=== PATIENT | male | born 1955 | race Caucasian/White ===

== ENCOUNTER 2023-02-03 11:03 | Emergency (ER) | payer MEDICARE, OTHER, SELFPAY ==
[2023-02-03] VITALS (8 sets, daily range): BP systolic 152–212; BP diastolic 75–92; PULSE 47–55; RESP 16–19; TEMP 36.7; O2SAT 96–99; BMI 26.7
--- NOTE | 2023-02-03 11:17 | DI.US.S_ITS ---
PROCEDURE: US ABDOMEN LIMITED INDICATIONS: RUQ PAIN TECHNIQUE: Real-time scanning was performed of the abdominal and retroperitoneal organs, with image documentation. COMPARISON: None. FINDINGS: Liver: Hepatic parenchyma shows diffuse increased echogenicity consistent with fatty infiltration. Gallbladder: Cholelithiasis and biliary sludge noted with mild gallbladder wall thickening at 3.3 mm. No pericholecystic fluid or Briceño sign Common Bile Duct: 5.2 mm. Pancreas: Unremarkable as visualized IMPRESSION: 1. Cholelithiasis and mild gallbladder wall thickening without pericholecystic fluid or Briceño sign. 2. Hepatic fatty infiltration Approved by: Kvng Oseguera M.D. on 02/03/2023 at 12:29
--- NOTE | 2023-02-03 11:18 | ED.ABDPAIN ---
HPI - Abdominal Pain General Chief Complaint: Abdominal Pain Stated Complaint: abd pain Time Seen by Provider: 02/03/23 11:10 History of Present Illness HPI narrative: 67-year-old male nonsmoker with history of coronary artery disease, prior 4 vessel CABG presents with multiple family members in the chief complaint of a relatively sudden onset right upper quadrant pain that woke him from sleep at about 230 this morning. He states that it is moderate in intensity and persistent. He denies any obvious provocation, palliation or radiation. He denies associated symptoms such as dizziness, weakness or lightheadedness. He denies any chest pain or shortness of breath. He is had no nausea, vomiting or change in bowel habits. He denies dysuria, frequency or urgency. He had initially called the nursing hotline who instructed him to present to an urgent care or emergency department and was sent here by our walk-in clinic. Related Data Previous Rx's Medication Instructions Recorded hydrocodone 5 mg-acetaminophen 325 1 tab PO Q4-6H PRN pain #10 tabs 02/03/23 mg tablet ondansetron 4 mg disintegrating 4 mg PO TID-QID PRN nausea and 02/03/23 tablet vomiting #10 tabs pantoprazole 40 mg tablet,delayed 40 mg PO DAILY #30 tabs 02/03/23 release (Protonix) Allergies Allergy/AdvReac Type Severity Reaction Status Date / Time No Known Drug Allergies Allergy Unverified 02/03/23 11:04 Review of Systems Review of Systems Narrative: GENERAL: Denies chills, fatigue, malaise, fever, sweats. HEENT: Denies sinus pain, ear pain, sore throat, difficulty swallowing, dizziness. RESPIRATORY: Denies dyspnea, cough, wheezing, hemoptysis, sputum. CARDIOVASCULAR: Denies chest pain, palpitations, orthopnea, edema, GASTROINTESTINAL: See HPI : See HPI MUSCULOSKELETAL: denies weakness, joint pain, or bony pain SKIN: Denies rash, skin lesions, or other NEUROLOGIC: Denies weakness, headache, numbness, change in speech, confusion, seizures, incoordination. PSYCHIATRIC: No concerning psychosocial issues. 12 point review of systems is negative except for those stated above Exam Narrative Exam Narrative: GENERAL: [67] year old patient appears stated age. Well-developed patient, in mild distress. HEAD: Atraumatic. Normocephalic. EYES: Pupils equal round and reactive. Extraocular motions intact. No scleral icterus. No injection or drainage. ENT: Nose without bleeding, purulent drainage. Throat without erythema, tonsillar hypertrophy or exudate. Airway patent. NECK: Trachea midline. Non tender CARDIOVASCULAR: Regular rate and rhythm without murmurs, gallops, or rubs. RESPIRATORY: Clear to auscultation. Breath sounds equal bilaterally. No wheezes, rales, or rhonchi. GASTROINTESTINAL: Abdomen soft, non-tender, nondistended. EXTREMITIES: No edema or joint tenderness. BACK: Nontender without deformity or crepitance. No flank tenderness. NEURO: AOx3. SKIN: No rash or erythema of visible areas Initial Vital Signs Initial Vital Signs: Vital Signs Temperature 98.0 F 02/03/23 11:04 Pulse Rate 51 L 02/03/23 11:04 Respiratory Rate 16 02/03/23 11:04 Blood Pressure 212/92 H 02/03/23 11:04 Pulse Oximetry 99 02/03/23 11:04 Oxygen Delivery Method Room Air 02/03/23 11:04 Course Orders Ordered: ED Orders 02/03/23 11:15 Complete Blood Count AUTO DIFF Stat Comprehensive Metabolic Panel Stat Lipase Stat Prothrombin Time INR Stat Troponin & CK Cardiac Panel Stat 02/03/23 11:17 US abdomen limited Stat 02/03/23 11:33 EKG-12 Lead Stat Discontinued Medications Sodium Chloride (Normal Saline 0.9%) 1,000 mls @ 1,000 mls/hr IV BOLUS ONE Stop: 02/03/23 12:16 Last Infusion: 02/03/23 12:52 Dose: 0 mls/hr Documented By: Admin: 02/03/23 11:40 Dose: 1,000 mls/hr Documented By: SPF Morphine Sulfate (Morphine 4 Mg/Ml Inj) 4 mg IV NOW ONE Stop: 02/03/23 12:30 Last Admin: 02/03/23 12:41 Dose: 4 mg Documented By: SPF Ondansetron HCl (Ondansetron 4 Mg/2 Ml Inj) 4 mg IV NOW ONE Stop: 02/03/23 12:30 Last Admin: 02/03/23 12:42 Dose: 4 mg Documented By: SPF Pantoprazole Sodium (Pantoprazole 40 Mg Vial) 40 mg IV NOW ONE Stop: 02/03/23 11:18 Last Admin: 02/03/23 11:40 Dose: 40 mg Documented By: BAO Vital Signs Vital signs: Vital Signs - 8 hr 02/03/23 11:04 02/03/23 11:20 02/03/23 11:24 Temperature 98.0 F Pulse Rate 51 L 55 L 50 L Respiratory Rate 16 16 Blood Pressure 212/92 H Pulse Oximetry 99 99 98 Oxygen Delivery Method Room Air 02/03/23 11:24 02/03/23 11:30 02/03/23 11:30 Temperature Pulse Rate 52 L Respiratory Rate 19 Blood Pressure 178/84 H 152/75 H Pulse Oximetry 97 Oxygen Delivery Method 02/03/23 12:04 02/03/23 12:30 02/03/23 12:31 Temperature Pulse Rate 50 L 50 L Respiratory Rate 17 17 Blood Pressure 177/82 H Pulse Oximetry 97 Oxygen Delivery Method 02/03/23 12:31 02/03/23 13:00 02/03/23 13:00 Temperature Pulse Rate 49 L 47 L Respiratory Rate 17 17 Blood Pressure 177/82 H Pulse Oximetry 97 96 Oxygen Delivery Method Room Air MDM - Abdominal Pain Lab Data 02/03/23 11:15 02/03/23 11:15 Labs: Lab Results 02/03/23 02/03/23 02/03/23 Range/Units 11:15 11:15 11:15 WBC 9.4 (4.5-11.0) X10^3/uL RBC 5.04 (4.5-5.9) X10^6/uL Hgb 12.9 L (13.5-17.5) g/dL Hct 38.1 L (41-53) % MCV 75.7 L (80-100) fL MCH 25.7 L (26-34) PG MCHC 34.0 (30-36) % RDW 16.1 H (11.6-14.8) % Plt Count 342 (150-400) X10^3/uL Neut % (Auto) 80.4 H (50-75) % Lymph % (Auto) 11.0 L (25-40) % [place] % (Auto) 7.7 (3-14) % Eos % (Auto) 0.7 L (2-4) % Baso % (Auto) 0.2 (0-2) % Neut # (Auto) 7500 H (1239-5013) /uL Lymph # (Auto) 1000 L (0121-7305) /uL [place] # (Auto) 700 (0-900) /uL Eos # (Auto) 100 (0-450) /uL Baso # (Auto) 0 (0-100) /uL PT 11.3 (10.1-12.7) SECONDS INR 1.0 (0.9-1.3) Sodium 139 (137-145) mmol/L Potassium 3.4 (3.4-5.1) mmol/L Chloride 101 (98-107) mmol/L Carbon Dioxide 27 (22-32) mmol/L BUN 17 (9-20) mg/dL Creatinine 0.97 (0.66-1.25) mg/dL Estimated GFR > 60 (>60) mL/min BUN/Creatinine Ratio 17.5 (6-22) Glucose 130 H (80-110) mg/dL Calcium 9.1 (8.4-10.2) mg/dL Total Bilirubin 0.5 (0.2-1.3) mg/dL AST 30 (17-59) IU/L ALT 32 (<50) IU/L Alkaline Phosphatase 100 (38-126) U/L Total Creatine Kinase (55-170) U/L CK-MB (CK-2) CK-MB (CK-2) Rel Index Troponin I (0.01-0.034) ng/mL Total Protein 7.9 (6.3-8.2) g/dL Albumin 4.6 (3.5-5.0) g/dL Globulin 3.3 (1.7-4.1) g/dL Albumin/Globulin Ratio 1.4 (1.0-2.8) Lipase 40 (23-300) U/L 02/03/23 Range/Units 11:15 WBC (4.5-11.0) X10^3/uL RBC (4.5-5.9) X10^6/uL Hgb (13.5-17.5) g/dL Hct (41-53) % MCV (80-100) fL MCH (26-34) PG MCHC (30-36) % RDW (11.6-14.8) % Plt Count (150-400) X10^3/uL Neut % (Auto) (50-75) % Lymph % (Auto) (25-40) % [place] % (Auto) (3-14) % Eos % (Auto) (2-4) % Baso % (Auto) (0-2) % Neut # (Auto) (2317-7382) /uL Lymph # (Auto) (8206-1644) /uL [place] # (Auto) (0-900) /uL Eos # (Auto) (0-450) /uL Baso # (Auto) (0-100) /uL PT (10.1-12.7) SECONDS INR (0.9-1.3) Sodium (137-145) mmol/L Potassium (3.4-5.1) mmol/L Chloride (98-107) mmol/L Carbon Dioxide (22-32) mmol/L BUN (9-20) mg/dL Creatinine (0.66-1.25) mg/dL Estimated GFR (>60) mL/min BUN/Creatinine Ratio (6-22) Glucose (80-110) mg/dL Calcium (8.4-10.2) mg/dL Total Bilirubin (0.2-1.3) mg/dL AST (17-59) IU/L ALT (<50) IU/L Alkaline Phosphatase (38-126) U/L Total Creatine Kinase 121 (55-170) U/L CK-MB (CK-2) TNP CK-MB (CK-2) Rel Index TNP Troponin I < 0.012 (0.01-0.034) ng/mL Total Protein (6.3-8.2) g/dL Albumin (3.5-5.0) g/dL Globulin (1.7-4.1) g/dL Albumin/Globulin Ratio (1.0-2.8) Lipase (23-300) U/L Point of care testing: Urine Dip Bedside Urine Glucose Negative Bedside Urine Bilirubin - Negative Bedside Urine Ketone - Negative Urine Specific [place] 1.015 Bedside Urine Occult Blood - Negative Bedside Urine pH 7.0 Bedside Urine Protein +/- 15 Bedside Urine Urobilinogen - Negative Bedside Urine Nitrite - Negative Bedside Urine Leukocytes - Negative Esterase ECG Data Interpretation: [1133] EKG is sinus catrina and regular rhythm rate [ 51] and free of any signs of ischemia or ectopy. No ST segmental elevation or depression. No T wave inversions. NV 226 (1st degree) MDM Narrative Medical decision making narrative: CC: 67-year-old male with right upper quadrant pain Complicating co-morbidities: Age, cardiac disease and prior CABG Data collected from: Patient Medical records reviewed: Prior notes reviewed in our EMR Differential considered, but not limited to: Gallbladder versus liver versus pancreas versus bowel versus, less likely cardiac Exam documented above, pertinent findings include: Heart rate regular, lungs clear, abdomen soft, no reproducible pain on exam Lab Test results independently reviewed as above. Pertinent findings: No leukocytosis or left shift, no anemia, electrolytes renal function and LFTs within normal. Lipase, troponin normal Independently reviewed EKG as above Imaging studies independently reviewed: Abdominal ultrasound notes cholelithiasis and mild gallbladder wall thickening without pericholecystic fluid or Briceño's sign Treatments: Zofran, morphine, fluids, pantoprazole Re-evaluations: Significant improvement, pain well controlled, tolerating orals Discussion: Patient with right upper quadrant pain in the absence of fever or chills. He has no chest pain or shortness of breath and is not dizzy nor weak or lightheaded. There is no evidence of sepsis. Multiple diagnoses considered as noted above. Cardiac thought extremely unlikely given history and physical exam, nonischemic EKG and negative troponin. Gallbladder disease thought highly likely. Ultrasound demonstrates stones and sludge, no pericholecystic fluid and labs show no significant abnormalities. At this point no indication for hospitalization or immediate surgical intervention. Discussed at length with both patient and family member (another healthcare provider) and we sure the opinion that outpatient approach is appropriate. He is given extensive return precautions including worsening pain, persistent vomiting, fever or other concerning symptoms Disposition: see below, along with detailed discharge instructions that have been reviewed with patient as well as indications for ED re-evaluation and additional outpatient follow up Discharge Plan Departure Patient Disposition: Home Clinical Impression: Cholelithiasis Instructions: Gallstones Activity Restrictions/Additional Instructions: *You have been diagnosed with [abdominal pain due to gallbladder disease] *What to do: *Please continue to take your regular medications as directed. [x ] New medication prescriptions sent to your pharmacy: [ [facility]] *[facility] call for an appointment. Let them know you were seen in the Emergency Department and that we ask that you be seen in follow up. We will electronically transmit a record of today's note if your PCP is in our system *Please consider a clear liquid diet for the next 24-48 hours and then slowly advance to regular as tolerated. Also, try to avoid alcohol, nicotine, caffeine, spicy, acidic or fatty foods as this may worsen your symptoms *If you do not have a primary care provider please contact the [facility] Resource line at [phone]. They will ask some questions about your medical history and help get you set up with a doctor in the community. *Return to Emergency Department if you should have any new, worsening or concerning symptoms, such as [fever greater than 101 F, shaking chills, worsening pain, persistent vomiting or other bothersome symptoms] Prescriptions: New hydrocodone-acetaminophen 5-325 mg tablet 1 tab PO Q4-6H PRN (Reason: pain) Qty: 10 0RF pantoprazole [Protonix] 40 mg tablet,delayed release (DR/EC) 40 mg PO DAILY Qty: 30 0RF ondansetron 4 mg tablet,disintegrating 4 mg PO TID-QID PRN (Reason: nausea and vomiting) Qty: 10 0RF Referrals: Mikal Rocha MD [Physician] - Miscellaneous,MD Trace [Primary Care Provider] - Stand Alone Forms: Patient Portal/API
[2023-02-03 11:35] LABS: Add Manual Diff / Slide Review NO; Basophils Absolute Auto 0 /uL (0-100); Basophils Percent Auto 0.2 % (0-2); Eosinophils Absolute Auto 100 /uL (0-450); Eosinophils Percent Auto 0.7 % (2-4); Hematocrit 38.1 % (41-53); Hemoglobin 12.9 g/dL (13.5-17.5); Lymphocytes Absolute Auto 1000 /uL (1100-4500); Mean Corpuscular Hemoglobin 25.7 PG (26-34); Mean Corpuscular Volume 75.7 fL (80-100); Monocytes Absolute Auto 700 /uL (0-900); Monocytes Percent Auto 7.7 % (3-14); Neutrophils Absolute Auto 7500 /uL (1500-7000); Neutrophils Percent Auto 80.4 % (50-75); Platelet Count 342 X10^3/uL (150-400); Red Blood Cell Count 5.04 X10^6/uL (4.5-5.9); Red Cell Distribution Width 16.1 % (11.6-14.8); White Blood Cell Count 9.4 X10^3/uL (4.5-11.0)
[2023-02-03] MEDS: PANTOPRAZOLE 40 MG VIAL IV (11:40)
[2023-02-03] MEDS: SODIUM CHLORIDE 0.9% 1,000 ML 1000 ML IV (11:40)
[2023-02-03 11:42] LABS: Prothrombin Time 11.3 SECONDS (10.1-12.7)
[2023-02-03 11:46] LABS: Alanine Aminotransferase 32 IU/L (<50); Albumin 4.6 g/dL (3.5-5.0); Albumin Globulin Ratio 1.4 (1.0-2.8); Alkaline Phosphatase 100 U/L (38-126); Aspartate Aminotransferase 30 IU/L (17-59); BUN Creatinine Ratio 17.5 (6-22); Bilirubin Total 0.5 mg/dL (0.2-1.3); Blood Urea Nitrogen 17 mg/dL (9-20); Calcium 9.1 mg/dL (8.4-10.2); Carbon Dioxide 27 mmol/L (22-32); Chloride 101 mmol/L (98-107); Creatine Kinase 121 U/L (55-170); Estimated Glomerular Filt Rate > 60 mL/min (>60); Globulin 3.3 g/dL (1.7-4.1); Glucose 130 mg/dL (80-110); HEMOLYSIS < 15 (0-50); Lipase 40 U/L (23-300); Potassium 3.4 mmol/L (3.4-5.1); Sodium 139 mmol/L (137-145); Total Protein 7.9 g/dL (6.3-8.2)
[2023-02-03 11:57] LABS: Troponin I < 0.012 ng/mL (0.01-0.034)
--- NOTE | 2023-02-03 12:12 | PC.NURSE ---
Patient states his heart rate is normally in the 50's. Patient denies shortness of breath, dizziness, or lightheaded.
[2023-02-03] MEDS: MORPHINE 4 MG/ML INJ IV (12:41)
[2023-02-03] MEDS: ONDANSETRON 4 MG/2 ML INJ IV (12:42)
== END 2023-02-03 13:45 | disposition home or self-care (01) ==
PROVIDERS: Emergency Provider Emergency Medicine
DX: K80.20 Calculus of gallbladder without cholecystitis without obstruction (principal)
CPT/HCPCS: 36415; 76705; 80053; 81003; 82550; 83690; 84484; 85025; 85610; 93005; 93010; 99284; C9113; J2270; J2405

== ENCOUNTER 2023-02-03 19:11 | Observation (INO) | payer MEDICARE, OTHER, SELFPAY ==
[2023-02-03] VITALS (14 sets, daily range): BP systolic 134–198; BP diastolic 74–102; PULSE 47–64; RESP 16–18; TEMP 35.6–36.1; O2SAT 94–98; BMI 26.7
--- NOTE | 2023-02-03 19:20 | ED.GENADULT ---
HPI - General Adult General Chief complaint: Abdominal Pain Stated complaint: gall stones Time Seen by Provider: 02/03/23 19:20 History of Present Illness HPI narrative: 67-year-old gentleman with a history of coronary artery disease, bypass with much of his care at [facility] in [place] presented earlier today with acute right upper quadrant pain and was evaluated in this emergency department. He was found to have cholelithiasis and biliary sludge with mild gallbladder wall thickening at 3.3 mm but no pericholecystic fluid and no Briceño's sign. Common bile duct measured 5.2 mm. Pancreas was unremarkable. Pain had been controlled with a dose of parenteral narcotic and he was discharged home with instructions follow-up with General surgery and given Vicodin and Zofran. Once discharged from the emergency department the pain returned to pre emergency evaluation levels and has not been able to be controlled with oral hydrocodone or ondansetron. He has had an episode of emesis after a couple of bites of Jell-O earlier. He returns for further evaluation. He states that he feels a bit more bloated than previously the abdominal pain is similar in the upper quadrants and epigastrium radiating through to the back. There was no blood in the emesis. He is not having diarrhea. He does not complain of chest pain, palpitations or dyspnea. No recent fevers. Related Data Home Medications Medication Instructions Recorded Confirmed amlodipine 5 mg tablet 5 mg PO DAILY 02/03/23 02/03/23 aspirin 81 mg tablet 81 mg PO DAILY 02/03/23 02/03/23 bupropion HCl 150 mg 24 hr tablet, 150 mg PO QAM 02/03/23 02/03/23 extended release chlorthalidone 25 mg tablet 25 mg PO DAILY 02/03/23 02/03/23 losartan 100 mg tablet 100 mg PO DAILY 02/03/23 02/03/23 melatonin 5 mg tablet 5 mg PO BEDTIME 02/03/23 02/03/23 multivit with minerals-iron 18 1 tab PO DAILY 02/03/23 02/03/23 mg-folic ac 400 mcg-vit K 25 mcg tablet (Adults Multivitamin) omega 9-okc-cxq-fish oil 1,000 mg 1 cap PO DAILY 02/03/23 02/03/23 (120 mg-180 mg) capsule (Fish Oil) rosuvastatin 40 mg tablet 40 mg PO DAILY 02/03/23 02/03/23 sertraline 100 mg tablet 100 mg PO DAILY 02/03/23 02/03/23 Previous Rx's Medication Instructions Recorded hydrocodone 5 mg-acetaminophen 325 1 tab PO Q4-6H PRN pain #10 tabs 02/03/23 mg tablet ondansetron 4 mg disintegrating 4 mg PO TID-QID PRN nausea and 02/03/23 tablet vomiting #10 tabs pantoprazole 40 mg tablet,delayed 40 mg PO DAILY #30 tabs 02/03/23 release (Protonix) Allergies Allergy/AdvReac Type Severity Reaction Status Date / Time No Known Drug Allergies Allergy Verified 02/03/23 19:22 Review of Systems Review of Systems Narrative: Pertinent positive and negative findings as per HPI Patient History Medical History Cholelithiasis Coronary artery disease Surgical History Status post aorto-coronary artery bypass graft Social History Smoking Status: Never smoker Exam Initial Vital Signs Initial Vital Signs: Vital Signs Temperature 97.0 F L 02/03/23 19:22 Pulse Rate 52 L 02/03/23 19:22 Respiratory Rate 16 02/03/23 19:22 Blood Pressure 198/88 H 02/03/23 19:22 Pulse Oximetry 97 02/03/23 19:22 Oxygen Delivery Method Room Air 02/03/23 19:22 General: Pale without diaphoresis, in moderate amount of pain but Able to give a complete and coherent history. Well-nourished well-developed HEENT: Moist mucous membranes, normal sclera with reactive pupils, Respiratory: Lungs are clear to auscultation, no wheezing no rales no rhonchi. Full and symmetrical air movement Cardiac: Regular rate and rhythm no murmurs no bruits Abdomen: Soft, mild distention, mild upper abdominal pain without specific right upper quadrant or epigastric tenderness. There is no rebound or guarding. There is no flank pain. Skin: Warm and dry, no rashes Neurologic: Grossly neurologically intact with no obvious asymmetries or abnormalities Extremities: No trauma, well perfused Psych: Cooperative, appropriate insight and affect Course Orders Ordered: ED Orders 02/03/23 19:31 CT abdomen pelvis w con Stat 02/03/23 19:45 Complete Blood Count AUTO DIFF Stat Comprehensive Metabolic Panel Stat Hydromorphone HCl (Hydromorphone 0.5 Mg Inj) 0.5 mg IV Q15MIN PRN PRN Reason: Pain, Last Admin: 02/03/23 21:44 Dose: 0.5 mg Documented By: Admin: 02/03/23 20:02 Dose: 0.5 mg Documented By: JULIANNE Hydromorphone HCl (Hydromorphone 0.5 Mg Inj) 0.5 mg IV Q2H PRN PRN Reason: Pain, Severe (7-10) Last Admin: 02/03/23 21:14 Dose: 0.5 mg Documented By: JULIANNE Sodium Chloride (Normal Saline 0.9%) 1,000 mls @ 125 mls/hr IV CONT RAGHAV Last Admin: 02/03/23 21:13 Dose: 125 mls/hr Documented By: UJLIANNE Ondansetron HCl (Ondansetron 4 Mg/2 Ml Inj) 4 mg IV Q4HR PRN PRN Reason: Nausea And Vomiting Last Admin: 02/03/23 21:14 Dose: 4 mg Documented By: JULIANNE Discontinued Medications Sodium Chloride (Normal Saline 0.9%) 1,000 mls @ 1,000 mls/hr IV BOLUS ONE Stop: 02/03/23 20:29 Last Infusion: 02/03/23 21:02 Dose: 0 mls/hr Documented By: Admin: 02/03/23 20:02 Dose: 1,000 mls/hr Documented By: JULIANNE Ondansetron HCl (Ondansetron 4 Mg/2 Ml Inj) 4 mg IV NOW ONE Stop: 02/03/23 19:31 Last Admin: 02/03/23 20:02 Dose: 4 mg Documented By: JULIANNE Vital Signs Vital signs: Vital Signs - 8 hr 02/03/23 19:22 Temperature 97.0 F L Pulse Rate 52 L Respiratory Rate 16 Blood Pressure 198/88 H Pulse Oximetry 97 Oxygen Delivery Method Room Air Medical Decision Making Lab Data 02/03/23 19:45 02/03/23 19:45 Labs: Lab Results 02/03/23 02/03/23 Range/Units 19:45 19:45 WBC 10.0 (4.5-11.0) X10^3/uL RBC 4.90 (4.5-5.9) X10^6/uL Hgb 12.7 L (13.5-17.5) g/dL Hct 36.9 L (41-53) % MCV 75.3 L (80-100) fL MCH 25.9 L (26-34) PG MCHC 34.4 (30-36) % RDW 15.7 H (11.6-14.8) % Plt Count 308 (150-400) X10^3/uL Neut % (Auto) 84.3 H (50-75) % Lymph % (Auto) 7.5 L (25-40) % [place] % (Auto) 7.6 (3-14) % Eos % (Auto) 0.2 L (2-4) % Baso % (Auto) 0.4 (0-2) % Neut # (Auto) 8400 H (3740-0617) /uL Lymph # (Auto) 800 L (6496-6594) /uL [place] # (Auto) 800 (0-900) /uL Eos # (Auto) 0 (0-450) /uL Baso # (Auto) 0 (0-100) /uL Sodium 136 L (137-145) mmol/L Potassium 3.2 L (3.4-5.1) mmol/L Chloride 98 (98-107) mmol/L Carbon Dioxide 30 (22-32) mmol/L BUN 14 (9-20) mg/dL Creatinine 0.84 (0.66-1.25) mg/dL Estimated GFR > 60 (>60) mL/min BUN/Creatinine Ratio 16.7 (6-22) Glucose 143 H (80-110) mg/dL Calcium 8.6 (8.4-10.2) mg/dL Total Bilirubin 0.6 (0.2-1.3) mg/dL AST 30 (17-59) IU/L ALT 30 (<50) IU/L Alkaline Phosphatase 90 (38-126) U/L Total Protein 7.4 (6.3-8.2) g/dL Albumin 4.3 (3.5-5.0) g/dL Globulin 3.1 (1.7-4.1) g/dL Albumin/Globulin Ratio 1.4 (1.0-2.8) MDM Narrative Medical decision making narrative: CC: Continued abdominal pain, failed trial of oral narcotic and antiemetics at home. This is an acute problem uncertain prognosis Complicating co-morbidities: Coronary artery disease post CABG Data collected from: patient, Medical records reviewed: Note from earlier today with workup including ultrasound reviewed Differential considered: Worsening cholelithiasis, common bile duct stone, ascending cholangitis, gastritis or perforating gastric or duodenal ulcer Exam documented above, pertinent findings include: Mild distention and mild upper abdominal tenderness without specific right upper quadrant pain or tenderness. Lab Test results independently reviewed as above. Pertinent findings: Labs from this morning are reviewed and show a normal lipase, no elevated white count and no change to liver function studies. Labs are repeated at this time and show: CBC does not show significant leukocytosis and is unchanged from this morning Metabolic panel does not show change liver studies and is unchanged from this morning Imaging studies independently reviewed: Ultrasound from earlier today is reviewed shows cholelithiasis with minimally elevated gallbladder wall and no other secondary findings of acute cholecystitis CT scan shows clear cholelithiasis with multiple small stones but no CT evidence of acute cholecystitis. Questionable gallbladder wall thickening with tiny gallbladder wall calcifications. No hepatic duct or common bile duct dilatation. No other significant abnormalities to explain his pain. Consultations: Dr. Rocha, general surgery Treatments: Parenteral fluids, narcotics, antiemetics Re-evaluations: Still having pain control issues after initial 0.5 mg dose of IV Dilaudid. Discussion: 67-year-old gentleman with cholelithiasis concern for developing cholecystitis but not actively sick at this time. Was seen earlier today slightly better after parenteral narcotics but pain returned and was unable to be controlled with oral narcotics and Zofran this afternoon. Workup was expanded on return with no significant change to labs. CT scan obtained and did not add any additional concerns findings or alternate explanations for his abdominal pain. At this point he appears to have cholelithiasis with uncontrolled pain and concern for developing cholecystitis without evidence for common bile duct stone, ascending cholangitis, bowel obstruction or other significant pathology. Care is reviewed with General surgery and patient will be admitted to the general surgery service with anticipation of cholecystectomy tomorrow. All medications are updated in the chart and routine medication orders are placed. Findings reviewed with patient and his both from understand and agree with current plan. Discharge Plan Departure Patient Disposition: Admitted as Observation Clinical Impression: Cholelithiasis, Uncontrolled pain Admit Date/Time: 02/03/23 20:43 Admit Provider: Mikal Rocha
--- NOTE | 2023-02-03 19:31 | DI.CT.S_ITS ---
PROCEDURE: CT ABDOMEN PELVIS W CON INDICATIONS: Abdominal pain TECHNIQUE: After the administration of intravenous contrast, axial sections acquired from the lung bases to the pubic symphysis. Coronal and sagittal reformats were performed. For radiation dose reduction, the following was used: automated exposure control, adjustment of mA and/or kV according to patient size. COMPARISON: [facility], , US ABDOMEN LIMITED, 02/03/2023, 11:42. FINDINGS: Image quality: Excellent. Lung bases: Left basilar atelectasis. Heart: Median sternotomy wires are seen. Heart size is normal, no pericardial effusion. ABDOMEN: Liver: There is moderate to severe hepatic steatosis, no discrete hepatic lesion. Gallbladder: Gallbladder is distended. Numerous small stones are noted in dependent portion of gallbladder lumen. No significant gallbladder wall thickening or pericholecystic fluid. Faint calcifications also noted in gallbladder wall. Biliary ducts: Unremarkable. Pancreas: Unremarkable. Spleen: Unremarkable. Adrenal Glands: Unremarkable. Kidneys and Ureters: Bilateral renal cysts are seen measures up to 5.6 x 8 cm in size in midpole left kidney. No hydronephrosis or hydroureter. Stomach and Bowel: Stomach, small bowel loops, and colon are unremarkable. Peritoneum: No abnormal intraperitoneal fluid. No free air. Ventral Wall: No hernias. Abdominal Nodes: No retroperitoneal or mesenteric adenopathy by size criteria. Vessels: Aorta and inferior vena cava are normal in size. [id number] atherosclerotic calcifications in abdominal aorta is seen. PELVIS: Pelvic Organs: Unremarkable. Bladder: Unremarkable. Pelvic Nodes: No enlarged lymph nodes. Miscellaneous: Left inguinal hernia is seen containing fat only. Bones: Chronic appearing mild anterior wedge compression deformity at T11 level is seen. No acute compression fracture or spondylolisthesis. No suspicious bony lesions. IMPRESSION: 1. Cholelithiasis. No definite CT evidence of acute cholecystitis. Questionable gallbladder wall thickening with tiny gallbladder wall calcifications. This is a nonspecific finding. Clinical correlation and outpatient follow-up is recommended for evaluation of possible porcelain gallbladder. 2. Moderate to severe hepatic steatosis, no discrete hepatic lesion. 3. No bowel obstruction or abnormal bowel wall thickening. No abscess collection. No free fluid or free air. 4. Bilateral renal cysts. No hydronephrosis or hydroureter. 5. Moderate atherosclerotic disease. Dictated by: Brendon Mukherjee M.D. on 02/03/2023 at 19:59 Approved by: Brendon Mukherjee M.D. on 02/03/2023 at 20:05
[2023-02-03 19:53] LABS: Add Manual Diff / Slide Review NO; Basophils Absolute Auto 0 /uL (0-100); Basophils Percent Auto 0.4 % (0-2); Eosinophils Absolute Auto 0 /uL (0-450); Eosinophils Percent Auto 0.2 % (2-4); Hematocrit 36.9 % (41-53); Hemoglobin 12.7 g/dL (13.5-17.5); Lymphocytes Absolute Auto 800 /uL (1100-4500); Lymphocytes Percent Auto 7.5 % (25-40); Mean Corpuscular HGB Conc 34.4 % (30-36); Mean Corpuscular Hemoglobin 25.9 PG (26-34); Mean Corpuscular Volume 75.3 fL (80-100); Monocytes Absolute Auto 800 /uL (0-900); Monocytes Percent Auto 7.6 % (3-14); Neutrophils Absolute Auto 8400 /uL (1500-7000); Neutrophils Percent Auto 84.3 % (50-75); Platelet Count 308 X10^3/uL (150-400); Red Cell Distribution Width 15.7 % (11.6-14.8)
[2023-02-03] MEDS: SODIUM CHLORIDE 0.9% 1,000 ML 1000 ML IV (20:02)
[2023-02-03] MEDS: ONDANSETRON 4 MG/2 ML INJ IV ×2 (20:02→21:14)
[2023-02-03] MEDS: HYDROMORPHONE 0.5 MG INJ IV ×3 (20:02→21:44)
[2023-02-03 20:07] LABS: Alanine Aminotransferase 30 IU/L (<50); Albumin 4.3 g/dL (3.5-5.0); Albumin Globulin Ratio 1.4 (1.0-2.8); Alkaline Phosphatase 90 U/L (38-126); Aspartate Aminotransferase 30 IU/L (17-59); BUN Creatinine Ratio 16.7 (6-22); Bilirubin Total 0.6 mg/dL (0.2-1.3); Blood Urea Nitrogen 14 mg/dL (9-20); Calcium 8.6 mg/dL (8.4-10.2); Carbon Dioxide 30 mmol/L (22-32); Chloride 98 mmol/L (98-107); Estimated Glomerular Filt Rate > 60 mL/min (>60); Globulin 3.1 g/dL (1.7-4.1); Glucose 143 mg/dL (80-110); HEMOLYSIS 26 (0-50); Potassium 3.2 mmol/L (3.4-5.1); Sodium 136 mmol/L (137-145); Total Protein 7.4 g/dL (6.3-8.2)
[2023-02-03] MEDS: SODIUM CHLORIDE 0.9% 1,000 ML 125 ML IV (21:13)
[2023-02-03] MEDS: SERTRALINE 50 MG TABLET 100 MG PO (22:12)
[2023-02-03] MEDS: ATORVASTATIN 20 MG TABLET 80 MG PO (22:12)
[2023-02-03] MEDS: MELATONIN 3 MG TABLET PO (23:30)
[2023-02-04] VITALS (11 sets, daily range): BP systolic 131–154; BP diastolic 47–75; PULSE 58–72; RESP 11–18; TEMP 36.3–37; O2SAT 90–97; BMI 26.7
--- NOTE | 2023-02-04 | PATH_ITS ---
[facility] Accession Number: [id number] No. of containers..01 Tissue . 01 Material submitted: . gallbladder - GALLBLADDER . 01 Diagnosis: Gallbladder, Cholecystectomy: Acute necrotizing cholecystitis and cholelithiasis. [facility] 02/08/2023 1012 Local . 01 Electronically signed: . Margot Vo MD, Pathologist NPI- [id number] . 01 Gross description: . The specimen is received in formalin labeled with the patient's name, , and gallbladder consists of an intact gallbladder measuring 8.4 x 4.5 x 1.6 cm. The cystic duct is received closed with a clamp, is inked blue, and no pericystic lymph node is identified. The lumen contains a small amount of mcdonald mucoid bile admixed with black roughened calculi measuring up to 0.4 cm in greatest dimension, not grossly obstructing the cystic duct. The mucosa is mcdonald and velvety with adherent mcdonald material consistent with exudate with no discoloration, polyps, or lesions identified. The ann average 0.4 cm thick. Machinist [employer] sections to the cystic duct margin and full thickness sections with exudate are submitted in cassette A1. ([id number]) /MRV 02/06/2023 1600 Local . 01 Pathologist provided ICD-10: K80.10, K81.0 . 01 CPT . 001871 Specimen Comment: A courtesy copy of this report has been sent to [phone] Performed at: 01 [facility] [address] [place] [address], [place], [place] [id number] MD Tyron Reyes MD Phone: [phone]
[2023-02-04] MEDS: SODIUM CHLORIDE 0.9% 1,000 ML 125 ML IV (05:10)
[2023-02-04 05:57] LABS: Alanine Aminotransferase 27 IU/L (<50); Albumin 4.1 g/dL (3.5-5.0); Albumin Globulin Ratio 1.4 (1.0-2.8); Alkaline Phosphatase 86 U/L (38-126); Aspartate Aminotransferase 24 IU/L (17-59); BUN Creatinine Ratio 11.4 (6-22); Bilirubin Total 0.6 mg/dL (0.2-1.3); Blood Urea Nitrogen 9 mg/dL (9-20); Calcium 8.4 mg/dL (8.4-10.2); Carbon Dioxide 28 mmol/L (22-32); Chloride 100 mmol/L (98-107); Estimated Glomerular Filt Rate > 60 mL/min (>60); Glucose 116 mg/dL (80-110); HEMOLYSIS < 15 (0-50); Potassium 3.2 mmol/L (3.4-5.1); Sodium 137 mmol/L (137-145); Total Protein 7.1 g/dL (6.3-8.2)
[2023-02-04] MEDS: LACTATED RINGERS 1,000 ML 42 ML IV ×2 (08:49→09:50)
--- NOTE | 2023-02-04 09:06 | SUR.OPER ---
Supine on padded OR bed, head on pillow, safety belt at thigh, left arm padded and tucked at side. Right arm secured on padded arm board <90 degrees abduction. Legs uncrossed. Padded footboard in place. Tape over blanket to secure lower legs.
--- NOTE | 2023-02-04 09:07 | P.HP_ITS ---
History of Present Illness History of Present Illness Date Patient Seen: 02/04/23 Time Patient Seen: 09:07 Chief complaint: gall stones Narrative: 67-year-old man admitted to the hospital for acute abdominal pain and cholelithiasis. He was evaluated in the emergency department twice yesterday. Initially he was found to have symptomatic cholelithiasis without evidence of acute cholecystitis. He was given return precautions and pain medication but despite this his pain was uncontrolled and he returned to the emergency department several hours later. Laboratory studies are unremarkable. WBC 10 hematocrit 37, total bilirubin 0.6 LFTs within normal limits. CT abdomen pelvis as well as abdominal ultrasound demonstrates multiple gallstones normal ductal structures slight wall thickening no pericholecystic fluid. No prior abdominal surgery. Tolerated open heart surgery bypass without anesthetic or bleeding issues. [facility] Medical History Cholelithiasis Coronary artery disease Surgical History Status post aorto-coronary artery bypass graft Social History household members: spouse Smoking Status: Never smoker Meds Home Medications and Allergies Home Medications Medication Instructions Recorded Confirmed Type amlodipine 5 mg tablet 5 mg PO DAILY 02/03/23 02/03/23 History aspirin 81 mg tablet 81 mg PO DAILY 02/03/23 02/03/23 History bupropion HCl 150 mg 24 hr tablet, 150 mg PO QAM 02/03/23 02/03/23 History extended release chlorthalidone 25 mg tablet 25 mg PO DAILY 02/03/23 02/03/23 History hydrocodone 5 mg-acetaminophen 325 1 tab PO Q4-6H PRN pain #10 tabs 02/03/23 02/03/23 Rx mg tablet losartan 100 mg tablet 100 mg PO DAILY 02/03/23 02/03/23 History melatonin 5 mg tablet 5 mg PO BEDTIME 02/03/23 02/03/23 History multivit with minerals-iron 18 1 tab PO DAILY 02/03/23 02/03/23 History mg-folic ac 400 mcg-vit K 25 mcg tablet (Adults Multivitamin) omega 5-fuv-tfw-fish oil 1,000 mg 1 cap PO DAILY 02/03/23 02/03/23 History (120 mg-180 mg) capsule (Fish Oil) ondansetron 4 mg disintegrating 4 mg PO TID-QID PRN nausea and 02/03/23 02/03/23 Rx tablet vomiting #10 tabs pantoprazole 40 mg tablet,delayed 40 mg PO DAILY #30 tabs 02/03/23 02/03/23 Rx release (Protonix) rosuvastatin 40 mg tablet 40 mg PO DAILY 02/03/23 02/03/23 History sertraline 100 mg tablet 100 mg PO DAILY 02/03/23 02/03/23 History Allergies Allergy/AdvReac Type Severity Reaction Status Date / Time No Known Drug Allergies Allergy Verified 02/03/23 19:22 Exam Vital Signs (past 8 hours): - 02/04/23 04:39 02/04/23 08:23 02/04/23 08:45 Temperature 97.5 F L 98.6 F 98.5 F Pulse Rate 60 62 60 Respiratory Rate 18 18 11 L Blood Pressure 154/75 H 135/75 146/72 H Pulse Oximetry 97 96 97 Oxygen Delivery Method Room Air Oxygen Flow Rate 0 0 Oxygen Delivery Method Room Air Oxygen Flow Rate 0 Narrative Exam Narrative: General adult man alert oriented no acute distress Chest nonlabored respiration Abdomen mild tenderness right upper quadrant. No peritonitis. Objective Labs 02/03/23 19:45 02/04/23 05:25 Labs: Laboratory Results - last 24 hr 02/03/23 02/03/23 02/04/23 19:45 19:45 05:25 WBC 10.0 RBC 4.90 Hgb 12.7 L Hct 36.9 L MCV 75.3 L MCH 25.9 L MCHC 34.4 RDW 15.7 H Plt Count 308 Neut % (Auto) 84.3 H Lymph % (Auto) 7.5 L Sabine % (Auto) 7.6 Eos % (Auto) 0.2 L Baso % (Auto) 0.4 Neut # (Auto) 8400 H Lymph # (Auto) 800 L Sabine # (Auto) 800 Eos # (Auto) 0 Baso # (Auto) 0 Sodium 136 L 137 Potassium 3.2 L 3.2 L Chloride 98 100 Carbon Dioxide 30 28 BUN 14 9 Creatinine 0.84 0.79 Estimated GFR > 60 > 60 BUN/Creatinine Ratio 16.7 11.4 Glucose 143 H 116 H Calcium 8.6 8.4 Total Bilirubin 0.6 0.6 AST 30 24 ALT 30 27 Alkaline Phosphatase 90 86 Total Protein 7.4 7.1 Albumin 4.3 4.1 Globulin 3.1 3.0 Albumin/Globulin Ratio 1.4 1.4 Assessment & Plan Assessment and plan (1) Cholelithiasis: Qualifiers: Biliary obstruction: without biliary obstruction Cholecystitis acuity: acute Cholelithiasis location: gallbladder Status: Acute (2) Uncontrolled pain: Status: Acute Assessment & Plan narrative: [age] year old man with symptomatic cholelithiasis and uncontrolled abdominal pain. At discussion with the patient in regards to his uncontrolled abdominal pain and findings of symptomatic cholelithiasis. Recommended that we proceed with laparoscopic cholecystectomy at this point. Overview of the operation was discussed. Operative risks including hemorrhage, infection, damage to surrounding structures, bile duct injury, conversion to open, embolism, heart attack and were discussed. Questions have been answered he is in agreement with this plan. Provides his written and verbal consent to proceed.
[2023-02-04] MEDS: CEFAZOLIN 2 GM/100 ML PREMIX 100 ML IV (09:20)
[2023-02-04] MEDS: BUPIVACAINE 0.25% (PF) VIAL 30 ML INJ (09:43)
--- NOTE | 2023-02-04 10:38 | PM.OP.1 ---
Operative Date/Time/Diagnoses Date of procedure: 02/04/23 Time of procedure: 10:38 Pre-op diagnosis: Biliary colic Post-op diagnosis: other (Acute cholecystitis) Procedure & Clinicians Procedure: Laparoscopic cholecystectomy Same procedure as scheduled: Yes Indications: 67-year-old man presented with symptomatic biliary colic. He was seen in the emergency department sent home on pain medication and returned several hours later with uncontrolled abdominal pain. He is taken to the operating room for a laparoscopic cholecystectomy. Surgeon: Mikal Rocha Anesthesia Type: General Operative Notes Findings: Tense distended gallbladder consistent with acute cholecystitis Specimen(s): other (Gallbladder) Estimated Blood Loss (mL): 20 Procedure in detail: The patient was placed supine on the table and bilateral lower extremity compression devices were applied. Anesthesia was induced they were intubated with an endotracheal tube and received 2g of Ancef. A time-out was performed. They were prepped and draped in sterile fashion. An infraumbilical incision was made. The fascia was elevated incised and the abdomen was entered atraumatically. A blunt tip 12mm balloon trocar was then inserted, pneumoperitoneum was established and inspection of the abdomen demonstrated no evidence of injury. They were placed head up and right side up and then a 11 mm port was placed high in the epigastrium and two 5mm in the right upper quadrant. The gallbladder was tense and distended consistent with acute cholecystitis. It was percutaneously drained facilitate its manipulation. The gallbladder was grasped by the fundus and retracted over the liver and retracted laterally by the infundibulum. Using electrocautery the lateral plane between the gallbladder and the liver was opened towards the fundus. The gallbladder was then retracted laterally and the medial plane was developed in the same manner. With the gallbladder mobilized the bottom of the cystic plate was visualized. The hepatocystic triangle was meticulosly skeletonized with blunt dissection of fat and fibrous tissue from both the front and the back. Only two structures were then clearly seen entering the gallbladder the cystic duct and the cystic artery. With the critical view of safety fully established the cystic duct was clipped twice proximally and once distally using the 10 mm Weck hemoclip applied under direct visualization and then sharply divided. The cystic artery was divided in the same fashion. The gallbladder was removed from the liver bed using electro cautery. The liver bed was then inspected for hemostasis and this was achieved. The abdomen was irrigated with sterile saline and inspection was made that showed the clips in good position. The specimen was removed using Endo-Catch. The abdomen was desufflated. The umbilical fascia was closed with 0 Vicryl in a [id number] fashion under direct visualization. Skin incisions were irrigated and closed with 4-0 Monocryl. 30 ml of 0.25% bupivacaine was infiltrated into the subcutaneous tissue of the incisions. The wounds were sealed with Dermabond. Patient emerged from anesthesia was extubated and transferred to recovery in stable condition. The sponge and instrument count at the end of the operation was correct. Complications: none Post-operative Condition: stable Disposition: same day surgery
[2023-02-04] MEDS: HYDROMORPHONE 2 MG INJ IV (10:59)
[2023-02-04] MEDS: OXYCODONE IR 5 MG TABLET PO ×2 (10:59→14:36)
[2023-02-04] MEDS: ONDANSETRON 4 MG/2 ML INJ IV (10:59)
--- NOTE | 2023-02-04 11:17 | CM.DANOTE ---
DCP: Case received, EMR reviewed. Patient currently downstairs for surgery, but spouse, Jackie, was here waiting in patient's room. Introduced self and role. Was able to complete DCP assessment based upon information currently available. Patient is a 67 year old male who admitted yesterday evening to the care of the hospitalist/surgical team. PCP: [facility] (can't remember the name of primary care provider). Payer: confirmed: [facility]. Patient came to the hospital via private vehicle secondary to having acute right upper quadrant pain. Patient was evaluated in the emergency room, and noted to have cholelithiasis and mild gallbladder wall thickening. Patient had been discharged on pain medications, but returned secondary to having uncontrollable pain, not relieved with oral pain medications. Patient had also noted some emesis. Surgeon had seen patient, was diagnosed with Choleithiasis, patient is scheduled for a laparoscopic cholecystectomy today. Met with patient's spouse, Jackie, since patient is currently in surgery. Confirmed that they both reside here in [place], but also have a home in [place]. Patient has has some medical history, stent placement, his provider is at [facility], can't remember the name of his provider. Patient is independent at his baseline. Spouse voiced concerns that her was in so much pain, had to wait in the ER until a room became available. She is happy that he now has a room upstairs. P: DCP to continue to follow for any needs. Plan is home when deemed medically stable. Geovanna Britton RN/Cargo Supervisor Discharge Planning/Care Management CM Discharge Assessment Start: 02/04/23 11:16 Freq: Status: Active Protocol: Document 02/04/23 11:17 (Rec: 02/04/23 11:17 [id number]) Discharge Planning Assessment Assigned Operations Supervisor 2Nd Shift Geovanna Britton RN/Cargo Supervisor Advance Directives? Yes Advance Directives on File No History Provided By Patient,Family Member Prior Living Arrangements House Household Members spouse Type of transporation used prior to Drives own vehicle admit Independent with ADL's Yes Is patient alert and oriented? Yes Caregiver for Another No Barriers to Discharge No Discharge Plan Home Transportation Arrangement Spouse Referrals Initiated None needed Whiteboard Updated in Patient Room with Yes name and ext. # of Operations Supervisor 2Nd Shift Review Status In Process Next Review Type Continued Stay Review
[2023-02-04] MEDS: AMLODIPINE 5 MG TABLET PO (13:10)
[2023-02-04] MEDS: LOSARTAN 50 MG TABLET 100 MG PO (13:10)
[2023-02-04] MEDS: buPROPion XL 150 MG TAB PO (13:10)
--- NOTE | 2023-02-04 15:00 | PC.NURSE ---
Discharge Note Patient A&O, VSS, RA, no complaints of pain/discomfort. Patient agreeable to discharge plan. Discharge packet reviewed with patient, all questions/concerns addressed. PIV discontinued. Patient able to dress self and pack all belongings. Patient taken down via wheelchair to POV.
== END 2023-02-04 14:46 | disposition home or self-care (01) ==
LOC: ED 19:20 → AC 20:44
PROVIDERS: Admitting Provider Surgery; Emergency Provider Surgery; Referring Provider Emergency Medicine; Visit Provider Surgery
PROC: 0FT44ZZ Resection of Gallbladder, Percutaneous Endoscopic Approach (ICD-10-PCS; CPT 47562; principal; 2023-02-04 09:00)
DX: K80.00 Calculus of gallbladder with acute cholecystitis without obstruction (principal); Z95.1 Presence of aortocoronary bypass graft; I25.10 Atherosclerotic heart disease of native coronary artery without angina pectoris; K80.20 Calculus of gallbladder without cholecystitis without obstruction
CPT/HCPCS: 47562; 36415; 74177; 76705; 80053; 81003; 82550; 83690; 84484; 85025; 85610; 93005; 93010; 96361; 96374; 96375; 96376; 99222; 99284; G0378; C9113; J0690; J1170; J1885; J2250; J2270; J2405; J3010; J3490; Q9967

== ENCOUNTER → 2025-06-05 07:07 | Outpatient (CLI) | payer MEDICARE, OTHER, SELFPAY ==
[2023-02-03 22:53] VITALS: BMI 26.7
[2025-06-05 07:57] LABS: Add Manual Diff / Slide Review NO; Hematocrit 41.9 % (41-53); Hemoglobin 14.1 g/dL (13.5-17.5); Lymphocytes Absolute Auto 1000 /uL (1100-4500); Mean Corpuscular HGB Conc 33.7 % (30-36); Mean Corpuscular Hemoglobin 23.9 PG (26-34); Mean Corpuscular Volume 71.0 fL (80-100); Platelet Count 329 X10^3/uL (150-400)
[2025-06-05 08:18] LABS: Alanine Aminotransferase 26 IU/L (<50); Albumin 4.4 g/dL (3.5-5.0); Albumin Globulin Ratio 1.5 (1.0-2.8); Alkaline Phosphatase 93 U/L (38-126); Blood Urea Nitrogen 14 mg/dL (9-20); Calcium 9.6 mg/dL (8.4-10.2); Carbon Dioxide 32 mmol/L (22-32); Chloride 98 mmol/L (98-107); Estimated Glomerular Filt Rate > 60 mL/min (>60); Globulin 3.0 g/dL (1.7-4.1); Glucose 118 mg/dL (70-99); HEMOLYSIS < 15 (0-50); Potassium 3.6 mmol/L (3.4-5.1); Sodium 139 mmol/L (137-145); Total Protein 7.4 g/dL (6.3-8.2)
[2025-06-05 08:32] LABS: Vitamin D 25 Hydroxy (D3) 47.1 ng/mL (30.0-100.0)
[2025-06-05 08:51] LABS: Ferritin 10 ng/mL (18-464)
[2025-06-07 08:11] LABS: CRP, High Sensitivity 6.86 mg/L (0.00-3.00)
== END ==
PROVIDERS: PCP Family Medicine; Referring Provider Family Medicine; Visit Provider Family Medicine
DX: D64.9 Anemia, unspecified (principal); E55.9 Vitamin D deficiency, unspecified; I25.10 Atherosclerotic heart disease of native coronary artery without angina pectoris; E78.5 Hyperlipidemia, unspecified
CPT/HCPCS: 36415; 80053; 82306; 82728; 85025; 86140

== ENCOUNTER → 2025-08-15 07:35 | Outpatient (CLI) | payer MEDICARE, OTHER, SELFPAY ==
[2023-02-03 22:53] VITALS: BMI 26.7
[2025-08-15 08:44] LABS: Add Manual Diff / Slide Review NO; Hematocrit 40.4 % (41-53); Hemoglobin 13.8 g/dL (13.5-17.5); Lymphocytes Absolute Auto 1000 /uL (1100-4500); Mean Corpuscular HGB Conc 34.2 % (30-36); Mean Corpuscular Hemoglobin 26.5 PG (26-34); Mean Corpuscular Volume 77.5 fL (80-100); Platelet Count 304 X10^3/uL (150-400)
[2025-08-15 08:51] LABS: Hemoglobin A1C% w Est Avg Glu 5.7 % (4.0-6.0)
[2025-08-15 09:10] LABS: Alanine Aminotransferase 38 IU/L (<50); Albumin 4.5 g/dL (3.5-5.0); Albumin Globulin Ratio 1.6 (1.0-2.8); Alkaline Phosphatase 83 U/L (38-126); Blood Urea Nitrogen 17 mg/dL (9-20); Calcium 9.1 mg/dL (8.4-10.2); Carbon Dioxide 29 mmol/L (22-32); Chloride 100 mmol/L (98-107); Estimated Glomerular Filt Rate > 60 mL/min (>60); Globulin 2.8 g/dL (1.7-4.1); Glucose 96 mg/dL (70-99); HEMOLYSIS < 15 (0-50); Potassium 3.6 mmol/L (3.4-5.1); Sodium 139 mmol/L (137-145); Total Protein 7.3 g/dL (6.3-8.2)
[2025-08-15 09:46] LABS: Ferritin 58 ng/mL (18-464)
[2025-08-16 08:11] LABS: Insulin Level Total 13.7 uIU/mL (2.6-24.9)
[2025-08-16 08:36] LABS: CRP, High Sensitivity 14.57 mg/L (0.00-3.00)
== END ==
PROVIDERS: PCP Family Medicine; Referring Provider Family Medicine; Visit Provider Family Medicine
DX: D64.9 Anemia, unspecified (principal); R73.9 Hyperglycemia, unspecified; E61.1 Iron deficiency; R79.82 Elevated C-reactive protein (CRP)
CPT/HCPCS: 36415; 80053; 82728; 83036; 83525; 85025; 86140